=== PATIENT | female | born 1940 | race Hispanic/Latino ===

== ENCOUNTER 2023-11-15 06:05 | Day surgery (SDC) | payer OTHER, MEDICARE ==
[2023-11-13 12:09] VITALS: BP 109/55; PULSE 68; RESP 17; TEMP 98
[2023-11-13 12:43] LABS: BASOPHILS # (AUTO) 0.03 K/uL (0.00-0.20); BASOPHILS % (AUTO) 0.3 % (0.0-5.0); EOSINOPHILS # (AUTO) 0.17 K/uL (0.00-0.70); EOSINOPHILS % (AUTO) 1.8 % (0.0-8.0); HEMATOCRIT 34.1 % (36-48); IMMATURE GRANULOCYTE ABSOLUTE 0.04 K/uL (0-1); LYMPHOCYTES # (AUTO) 1.4 K/uL (1.0-4.8); LYMPHOCYTES % (AUTO) 15.2 % (21.0-51.0); MEAN CORPUSCULAR HEMOGLOBIN 30.4 pg (27.0-33.0); MEAN CORPUSCULAR VOLUME 95.3 fL (79-99); MONOCYTES # (AUTO) 0.6 K/uL (0.1-1.0); MONOCYTES % (AUTO) 6.9 % (3.0-13.0); NEUTROPHILS # (AUTO) 6.9 K/uL (1.8-7.7); NEUTROPHILS % (AUTO) 75.4 % (40.0-77.0); PLATELET COUNT (AUTO) 176 K/uL (130-400); RED BLOOD CELL COUNT(AUTO) 3.58 MIL/uL (4.00-5.50); RED CELL DISTRIBUTION WIDTH 14.2 % (11.0-15.5); WHITE BLOOD COUNT (AUTO) 9.2 K/uL (4.8-10.8)
[2023-11-13 12:53] LABS: POTASSIUM 4.3 mmol/L (3.5-5.1)
[2023-11-13 12:55] LABS: PROTHROMBIN TIME 10.8 SEC (9.6-11.6)
[2023-11-13 12:57] LABS: PARTIAL THROMBOPLASTIN TIME 25.9 SEC (26.3-35.5)
[2023-11-13 13:05] LABS: B-TYPE NATRIURETIC PEPTIDE 405 pg/mL (0-100)
[2023-11-15] VITALS (14 sets, daily range): BP systolic 104–141; BP diastolic 46–61; PULSE 55–68; RESP 18; TEMP 97.4–97.7
[~2023-11-15] VITALS: Ht 152.4 cm; Wt 69.6 kg
[~2023-11-15 06:05] MED LIST: B COMPLEX PO; CLOP75TA32 PO; FISH1CAP50 PO; INSU300I SQ; METO-408 PO; ROSU20TA73 PO; SEMA0.258 SQ; VITAMIN D PO
[2023-11-15] MEDS ORDERED: 0.9%NACL 1000ML 1,000 ML IV SCH (07:00)
[2023-11-15] MEDS: 0.9%NACL 1000ML 1,000 ML IV ONE (07:06)
[2023-11-15] MEDS ORDERED: IOHEXOL 350 MG/ML 100ML INFUS..BTL IV ONE (07:11)
[2023-11-15] MEDS ORDERED: LIDOCAINE HCL 400MG/20ML VIAL ONE (07:11)
[2023-11-15] MEDS ORDERED: HEParin-NS 1,000 UNIT/500 ML 1,000 ML IV ONE (07:12)
[2023-11-15] MEDS ORDERED: NITROGLYCERIN 50MG VIAL ONE (07:12)
[2023-11-15] MEDS ORDERED: FENTanyl CITRate PF 50 MCG/1 ML 2ML VIAL ONE (07:24)
[2023-11-15] MEDS ORDERED: MIDAZOLAM HCL 1 MG/ML 2ML VIAL ONE (07:24)
[2023-11-15] MEDS ORDERED: BIVALIRUDIN 250 MG/VIAL IV ONE (07:41)
[2023-11-15] MEDS ORDERED: GLUCAGON 1MG KIT 1 MG ML IM PRN (09:00)
[2023-11-15] MEDS ORDERED: DEXTROSE 50%-WATER 50 ML DISP.SYRIN IV PRN (09:00)
== END 2023-11-15 13:25 | disposition home or self-care (01) ==
LOC: DAH 06:05
PROVIDERS: ATTEND Internal Medicine Cardiovascular Disease
DX: I35.0 Nonrheumatic aortic (valve) stenosis (principal); I25.118 Atherosclerotic heart disease of native coronary artery with other forms of angina pectoris; R54 Age-related physical debility; A52.0 Cardiovascular and cerebrovascular syphilis; I10 Essential (primary) hypertension; E11.9 Type 2 diabetes mellitus without complications; I95.1 Orthostatic hypotension; E78.49 Other hyperlipidemia; R42 Dizziness and giddiness; Z79.01 Long term (current) use of anticoagulants; Z79.899 Other long term (current) drug therapy
CPT/HCPCS: 36415; 71045; 80048; 82948; 83880; 85025; 85610; 85730; 93005; 93454; 99156; 99157; A4606; C1760; C1894; J0583; J1644; J2250; J3010; J3490; J7030; Q9967; A4215; A4216; A4221; A4222; A4223; A4663; Q9965